=== PATIENT | female | born 1945 | race Caucasian/White ===

== ENCOUNTER 2016-09-22 12:59 | Emergency (ER) | payer OTHER, BC ==
[~2016-09-22] VITALS: Ht 167.6 cm; Wt 97.1 kg
[~2016-09-22 12:59] MED LIST: ASPIR-LOW81 MG PO; ATORVASTATIN CA80 MG PO; BRILINTA90 MG PO; LOPRESSOR25 MG PO; LOSARTAN POTASS50 MG PO; NITROSTAT0.4 MG SL
[2016-09-22 15:05] LABS: HEMATOCRIT 45.2 % (36.0-46.0); MCH 28.2 PG (29.0-34.0); MCHC 32.3 G/DL (30.0-36.0); MCV 87.4 FL (83-99); MEAN PLAT.VOLUME 10.7 uM^3 (9.5-12.4); PLATELET COUNT 312 K/uL (156-360); RBC DIS.WIDTH-CV 14.5 % (11.8-14.6); RBC DIS.WIDTH-SD 46.8 % (39-53); RED BLOOD COUNT 5.17 M/uL (3.80-5.20); WHITE BLOOD COUNT 14.3 K/uL (4.1-10.2)
[2016-09-22 15:15] LABS: CHLORIDE 105 mEq/L (99-109); INTER. NORMALIZED RATIO 1.1; POTASSIUM 4.3 mEq/L (3.7-5.4); SODIUM 141 mEq/L (136-147)
[2016-09-22 15:17] LABS: GLUCOSE 108 mg/dL (70-99)
[2016-09-22 15:19] LABS: ANION GAP 11 MEQ/L (2-14)
[2016-09-22 15:21] LABS: GFR ESTIMATE (CALCULATED) 58 mL/min/
[2016-09-22 15:22] LABS: UREA NITROGEN (BUN) 18 mg/dL (9-23)
[2016-09-22 15:25] LABS: TROP-I INTERPRETATION NEGATIVE; TROPONIN-I 0.01 ng/mL (0.0-0.30)
[2016-09-22] MEDS ORDERED: ULTRAM50 MG PO (16:44)
[2016-09-22] MEDS ORDERED: FLEXERIL10 MG PO (16:44)
[2016-09-22 18:05] VITALS: BP 194/94
== END 2016-09-22 18:06 | disposition home or self-care (01) ==
LOC: EME 12:59
PROVIDERS: Nurse Practitioner Family
PROC: 2W3FX1Z Immobilization of Left Hand using Splint (ICD-10-PCS; principal; 2016-09-22)
DX: S10.83XA Contusion of other specified part of neck, initial encounter (principal); S20.212A Contusion of left front wall of thorax, initial encounter; V49.88XA Car occupant (driver) (passenger) injured in other specified transport accidents, initial encounter; S61.211A Laceration without foreign body of left index finger without damage to nail, initial encounter; I10 Essential (primary) hypertension; I25.2 Old myocardial infarction; Z95.5 Presence of coronary angioplasty implant and graft; Z85.3 Personal history of malignant neoplasm of breast; Z88.0 Allergy status to penicillin; Z91.040 Latex allergy status
CPT/HCPCS: 70491; 71260; 73140; 80048; 84484; 85027; 85610; 85730; 93005; 99281; 99285